=== PATIENT | female | born 1965 | race Caucasian/White ===

== ENCOUNTER → 2017-11-01 | Outpatient (CLI) | payer MEDICARE ==
[~2017-11-01] MED LIST: ATEN50TA41 PO; BUSP10TA PO; FLEXERIL PO; FURO-92 PO; GABA800T2 PO; HYDR-3307 PO; LOVA20TA2 PO; PANT40TA5 PO; POTA10TA5 PO
[2017-11-01 13:24] LABS: BASOPHILS # (AUTO) 0.04 x10^3/uL (0-0.1); BASOPHILS % (AUTO) 0 % (0-1); EOSINOPHILS % (AUTO) 1 % (1-7); LYMPHOCYTES # (AUTO) 1.53 x10^3/uL (1-3.4); LYMPHOCYTES % (AUTO) 13 % (22-44); MD NO; MEAN CORPUSCULAR HEMOGLOBIN 29.3 pg (27.0-34.8); MEAN CORPUSCULAR HGB CONC 33.9 g/dL (32.4-35.8); MEAN CORPUSCULAR VOLUME 86.6 fL (80-100); MEAN PLATELET VOLUME 10.4 fL (7.4-10.4); MONOCYTES # (AUTO) 0.27 x10^3/uL (0.2-0.8); MONOCYTES % (AUTO) 2 % (2-9); NEUTROPHILS # (AUTO) 9.58 x10^3/uL (1.8-6.8); NEUTROPHILS % (AUTO) 83 % (42-75); PLATELET COUNT 208 x10^3/uL (130-400); RED BLOOD COUNT 5.78 x10^6/uL (3.82-5.3); RED CELL DISTRIBUTION WIDTH 13.5 % (9.6-15.2)
[2017-11-01 13:32] LABS: INTERNATIONAL NORMALIZED RATIO 0.96 (0.93-1.1)
[2017-11-01 13:35] LABS: ALANINE AMINOTRANSFERASE 53 U/L (12-78); ALBUMIN 4.6 g/dL (3.4-5.0); ANION GAP 8 mmol/L (5-15); CALCIUM 9.8 mg/dL (8.5-10.1); CHLORIDE 106 mmol/L (98-107); CREATININE 0.81 mg/dL (0.55-1.02)
[2017-11-01 13:37] LABS: ALKALINE PHOSPHATASE 159 U/L (45-117); BILIRUBIN,TOTAL 0.4 mg/dL (0.2-1.0); TOTAL PROTEIN 8.9 g/dL (6.4-8.2)
[2017-11-01 13:44] LABS: MICROSCOPIC AUTO
[2017-11-01 13:49] LABS: CULTURE INDICATED? NO
== END | disposition home or self-care (01) ==
LOC: STAR 12:14
PROVIDERS: ATTEND Neurological Surgery
DX: Z01.818 Encounter for other preprocedural examination (principal); M50.30 Other cervical disc degeneration, unspecified cervical region; I10 Essential (primary) hypertension; Z87.891 Personal history of nicotine dependence
CPT/HCPCS: 36415; 71046; 80053; 81001; 85025; 85610; 85730; 93005

== ENCOUNTER 2017-11-15 12:18 | Inpatient (IN) | payer MEDICARE ==
[~2017-11-15] VITALS: Ht 167.6 cm; Wt 110.0 kg
[~2017-11-15 12:18] MED LIST changes: +BACITRACIN 50,000 UNIT ONE; +BUPIVACAINE/PF 0.25% ONE; +EPINEPHRINE 1 MG/ML, 1ML ONE; +THROMBIN 5,000 UNIT VIAL TP ONE
[2017-11-15] MEDS ORDERED: LACTATED RINGERS 1,000 ML IV SCH ×2 (14:11→14:25)
[2017-11-15 14:21] VITALS: BP 146/94
[2017-11-15] MEDS ORDERED: OxyconTIN ER 10 MG TAB.ER PO ONE (14:30)
[2017-11-15] MEDS ORDERED: GABAPENTIN 300 MG CAPSULE PO ONE (14:30)
[2017-11-15] MEDS ORDERED: ACETAMINOPHEN 500 MG TABLET PO ONE (14:30)
[2017-11-15] MEDS ORDERED: FAMOTIDINE 20 MG TABLET PO ONE (14:30)
[2017-11-15] MEDS ORDERED: SCOPOLAMINE PATCH, 1.5MG PATCH.TD72 TD ONE (14:30)
[2017-11-15] MEDS ORDERED: MIDAZOLAM 1 MG/ML, 2ML ONE (16:07)
[2017-11-15] MEDS ORDERED: FENTANYL PF 250 MCG/5ML ONE ×3 (16:07→19:15)
[2017-11-15] MEDS ORDERED: ONDANSETRON 2MG/ML, 2ML ONE (16:10)
[2017-11-15] MEDS ORDERED: SUCCINYLCHOLINE 20 MG/ML, 10ML ONE (16:10)
[2017-11-15] MEDS ORDERED: NEOSTIGMINE 1 MG/ML, 10ML ONE (16:10)
[2017-11-15] MEDS ORDERED: GLYCOPYRROLATE 0.2MG/1ML, 5ML ONE (16:10)
[2017-11-15] MEDS ORDERED: CEFAZOLIN 1,000 MG ONE (16:10)
[2017-11-15] MEDS ORDERED: PROPOFOL 10 MG/ML, 20ML ONE (16:10)
[2017-11-15] MEDS ORDERED: DEXAMETHASONE 4 MG/ML, 1ML ONE (16:10)
[2017-11-15] MEDS ORDERED: KETAMINE 10 MG/ML, 20ML ONE (17:20)
[2017-11-15] MEDS ORDERED: EPHEDRINE 50 MG/ML, 1ML ONE (17:30)
[2017-11-15] MEDS ORDERED: LIDOCAINE-MPF 2% ,5ML ONE (17:30)
[2017-11-15] MEDS ORDERED: LIDOCAINE 4%, 4 ML SYR/CANN TP ONE (17:30)
[2017-11-15] MEDS ORDERED: ROCURONIUM 10 MG/ML,10ML ONE (17:30)
[2017-11-15] MEDS ORDERED: BUPIVACAINE/PF-EPI 0.25% 1:200K INFIL ONE (18:05)
[2017-11-15] MEDS ORDERED: THROMBIN 5,000 UNIT VIAL TP ONE (18:06)
[2017-11-15] MEDS ORDERED: BACITRACIN 50,000 UNIT IM ONE (18:06)
[2017-11-15] MEDS ORDERED: PROPOFOL 50 ML ONE (20:06)
[2017-11-15] MEDS ORDERED: HYDROmorphone 2 MG/ML, 1ML ONE (20:41)
[2017-11-15] MEDS ORDERED: FENTANYL PF 100 MCG/2ML ONE (20:41)
[2017-11-15] MEDS ORDERED: OXYcodone 5 MG/5 ML ORAL.SOL UDC ONE (20:41)
[2017-11-15] MEDS: HYDROmorphone 1 MG/ML, 1ML IV PRN ×2 (20:51→20:58)
[2017-11-15] MEDS ORDERED: PROMETHAZINE 25 MG/ML, 1ML IV PRN (21:00)
[2017-11-15] MEDS ORDERED: MEPERIDINE/PF 25MG/0.5ML IVPush PRN (21:00)
[2017-11-15] MEDS ORDERED: LORazepam 2 MG/ML, 1ML IVPush PRN (21:00)
[2017-11-15] MEDS ORDERED: LABETALOL 5MG/ML, 20ML IV PRN (21:00)
[2017-11-15] MEDS ORDERED: hydrALAzine 20 MG/ML, 1ML IV PRN (21:00)
[2017-11-15] MEDS ORDERED: ONDANSETRON ODT 8 MG PO PRN (21:00)
[2017-11-15] MEDS ORDERED: MORPHINE SULFATE 4 MG/ML, 1ML IVPush PRN (21:00)
[2017-11-15] MEDS ORDERED: OXYcodone 5 MG/5 ML ORAL.SOL UDC PO PRN (21:00)
[2017-11-15] MEDS ORDERED: FENTANYL PF 100 MCG/2ML IV PRN (21:00)
[2017-11-15 21:45] VITALS: BP 138/86
[2017-11-15] MEDS ORDERED: ONDANSETRON 2MG/ML, 2ML IV PRN (22:30)
[2017-11-15] MEDS ORDERED: PROMETHAZINE 25 MG/ML, 1ML IM PRN (22:30)
[2017-11-15] MEDS ORDERED: DIPHENHYDRAMINE 25 MG CAPSULE PO PRN (22:30)
[2017-11-15] MEDS ORDERED: TIZANIDINE 2MG TABLET PO PRN (22:30)
[2017-11-15] MEDS ORDERED: MAGNESIUM HYDROXIDE 8%, 30ML UDC PO PRN (22:30)
[2017-11-15] MEDS ORDERED: PHARMACY MAY ADJ FOR RENAL FX MC PRN (22:30)
[2017-11-15] MEDS ORDERED: BISACODYL 10 MG SUPP PR PRN (22:30)
[2017-11-15] MEDS ORDERED: DIPHENHYDRAMINE 50 MG/ML, 1ML IVPush PRN (22:30)
[2017-11-15] MEDS ORDERED: MEPERIDINE/PF 100 MG/ML IM PRN (22:30)
[2017-11-15] MEDS: LOVASTATIN 20 MG TABLET PO SCH (23:54)
[2017-11-15] MEDS: HYDROcodone/APAP 5/325 TABLET PO PRN (23:54)
[2017-11-15] MEDS: DEXAMETHASONE 4 MG TABLET PO SCH (23:54)
[2017-11-15] MEDS: NS + 20MEQ KCL 1,000 ML IV SCH (23:55)
[2017-11-15 23:59] VITALS: BP 140/85
[2017-11-16] MEDS: CEFAZOLIN PMX 1GM/50ML 50 ML IVPB SCH ×2 (01:45→10:08)
[2017-11-16] MEDS: CYCLOBENZAPRINE 10 MG TABLET PO PRN ×2 (01:45→22:56)
[2017-11-16 03:52] VITALS: BP 141/86
[2017-11-16] MEDS: HYDROcodone/APAP 5/325 TABLET PO PRN (04:12)
[2017-11-16] MEDS: DEXAMETHASONE 4 MG TABLET PO SCH ×3 (06:13→17:43)
[2017-11-16 06:53] VITALS: BP 136/82
[2017-11-16] MEDS: FUROSEMIDE 40 MG TABLET PO SCH (08:19)
[2017-11-16] MEDS: BUSPIRONE 10 MG TABLET PO SCH ×2 (08:19→20:19)
[2017-11-16] MEDS: ATENOLOL 50 MG TABLET PO SCH ×2 (08:19→20:19)
[2017-11-16] MEDS: POTASSIUM CHLORIDE 20 MEQ TAB.ER.PRT PO SCH (08:19)
[2017-11-16] MEDS: PANTOPROZOLE 40MG TABLET PO SCH (08:20)
[2017-11-16] MEDS: OXYcodone/APAP 5/325MG TABLET PO PRN ×4 (08:20→20:19)
[2017-11-16] MEDS: GABAPENTIN 400 MG CAPSULE PO SCH ×3 (08:20→20:19)
[2017-11-16] MEDS: SENNA/DOCUSATE TABLET PO SCH (08:20)
[2017-11-16] MEDS ORDERED: CYCL-259 PO (09:37)
[2017-11-16] MEDS ORDERED: OXYC1TAB7 PO (09:37)
[2017-11-16] MEDS: NS + 20MEQ KCL 1,000 ML IV SCH ×2 (10:00→20:00)
[2017-11-16 14:30] VITALS: BP 129/81
[2017-11-16 20:09] VITALS: BP 136/77
[2017-11-16] MEDS: LOVASTATIN 20 MG TABLET PO SCH (20:19)
[2017-11-17] MEDS: OXYcodone/APAP 5/325MG TABLET PO PRN ×3 (00:23→09:53)
[2017-11-17] MEDS: DEXAMETHASONE 4 MG TABLET PO SCH ×2 (00:23→05:26)
[2017-11-17 02:04] VITALS: BP 132/86
[2017-11-17] MEDS: NS + 20MEQ KCL 1,000 ML IV SCH (05:26)
[2017-11-17 07:44] VITALS: BP 165/97
[2017-11-17] MEDS: FUROSEMIDE 40 MG TABLET PO SCH (08:17)
[2017-11-17] MEDS: SENNA/DOCUSATE TABLET PO SCH (08:17)
[2017-11-17] MEDS: GABAPENTIN 400 MG CAPSULE PO SCH (08:17)
[2017-11-17] MEDS: ATENOLOL 50 MG TABLET PO SCH (08:17)
[2017-11-17] MEDS: PANTOPROZOLE 40MG TABLET PO SCH (08:17)
[2017-11-17] MEDS: POTASSIUM CHLORIDE 20 MEQ TAB.ER.PRT PO SCH (08:17)
[2017-11-17] MEDS: BUSPIRONE 10 MG TABLET PO SCH (08:17)
[2017-11-17 09:52] VITALS: BP 136/78
[2017-11-17] MEDS: CYCLOBENZAPRINE 10 MG TABLET PO PRN (09:53)
== END 2017-11-17 10:30 | disposition home or self-care (01) | DRG 471 ==
LOC: MERGE 13:00 → ORIP 13:55 → 4NOR 21:40
PROVIDERS: ADMIT Neurological Surgery; ATTEND Neurological Surgery
PROC: 0RB30ZZ Excision of Cervical Vertebral Disc, Open Approach (ICD-10-PCS; 2017-11-15)
PROC: 0RG20A0 Fusion of 2 or more Cervical Vertebral Joints with Interbody Fusion Device, Anterior Approach, Anterior Column, Open Approach (ICD-10-PCS; principal; 2017-11-15 17:00)
DX: M50.123 Cervical disc disorder at C6-C7 level with radiculopathy (principal); E43 Unspecified severe protein-calorie malnutrition; I10 Essential (primary) hypertension; E78.00 Pure hypercholesterolemia, unspecified; G43.909 Migraine, unspecified, not intractable, without status migrainosus; F43.10 Post-traumatic stress disorder, unspecified; F32.9 Major depressive disorder, single episode, unspecified; F41.9 Anxiety disorder, unspecified; Z80.9 Family history of malignant neoplasm, unspecified; M47.892 Other spondylosis, cervical region; K21.9 Gastro-esophageal reflux disease without esophagitis; M19.90 Unspecified osteoarthritis, unspecified site; Z86.14 Personal history of Methicillin resistant Staphylococcus aureus infection; Z87.81 Personal history of (healed) traumatic fracture; G62.9 Polyneuropathy, unspecified; Z88.8 Allergy status to other drugs, medicaments and biological substances; Z88.6 Allergy status to analgesic agent; F17.200 Nicotine dependence, unspecified, uncomplicated; Z82.61 Family history of arthritis; Z82.3 Family history of stroke; Z82.0 Family history of epilepsy and other diseases of the nervous system; Z82.49 Family history of ischemic heart disease and other diseases of the circulatory system
CPT/HCPCS: 36415; 72040; 86850; 86900; 95938; 95941; C1713; J0171; J0690; J1100; J1170; J2250; J2270; J2405; J2704; J2710; J3010; J3480; J3490; J0330; J7120